=== PATIENT | female | born 1960 | race Caucasian/White ===

== ENCOUNTER → 2017-09-03 | Outpatient (CLI) | payer OTHER ==
[~2017-09-03] MED LIST: CIPROFLOXACIN500 M1 PO; PERCOCET 5-3251 EACH PO
[2017-09-03 09:10] VITALS: BP 166/89
[2017-09-03 09:40] VITALS: BP 171/94
== END ==
LOC: M.RAD 07:17 → M.CT 08:30
DX: K76.0 Fatty (change of) liver, not elsewhere classified (principal); K76.89 Other specified diseases of liver

== ENCOUNTER → 2020-01-05 | Outpatient (CLI) | payer MEDICARE | LOC: M.MRI 07:14 | PROVIDERS: ATTEND Orthopaedic Surgery | DX: M71.22 Synovial cyst of popliteal space [Baker], left knee (principal) ==